=== PATIENT | female | born 1995 | race Caucasian/White ===

== ENCOUNTER 2022-10-09 07:10 | Day surgery (SDC) | payer MEDICAID ==
[2022-10-05 16:27] LABS: HCG,QUAL RESULT NEGATIVE (NEGATIVE)
[~2022-10-09] VITALS: Ht 154.9 cm; Wt 63.5 kg
[2022-10-09 06:57] LABS: HCG,QUAL RESULT NEGATIVE (NEGATIVE)
[2022-10-09] MEDS ORDERED: fentaNYL CITRATE 250 MCG/5 ML AMP ONE (09:10)
[2022-10-09] MEDS ORDERED: ROCURONIUM BROMIDE 10 MG/ML (ZEMURON) ONE (09:10)
[2022-10-09] MEDS ORDERED: SUGAMMADEX SODIUM 200 MG/2 ML VIAL IV ONE (09:10)
[2022-10-09] MEDS ORDERED: DEXAMETHASONE SOD PHOSPHATE 4 MG/ML VIAL ONE (09:10)
[2022-10-09] MEDS ORDERED: NS IRRIG SOLN 1000 ML IR ONE (09:10)
[2022-10-09] MEDS ORDERED: LIDOCAINE 2%, 20 ML MDV ONE (09:10)
[2022-10-09] MEDS ORDERED: DESFLURANE 15 MIN GAS INH ONE (09:10)
[2022-10-09] MEDS ORDERED: ONDANSETRON HCL 4 MG/2 ML VIAL ONE (09:10)
[2022-10-09] MEDS ORDERED: PROPOFOL 200MG/ 20ML VIAL (DIPRIVAN) IV ONE (09:10)
[2022-10-09] MEDS ORDERED: MIDAZOLAM HCL 5 MG/ML VIAL (VERSED) IV ONE (09:10)
[2022-10-09] MEDS ORDERED: BACITRACIN ZINC 15 GM TOPICAL OINTMENT TP ONE (09:10)
[2022-10-09] MEDS ORDERED: MEPERIDINE HCL/PF 25 MG/ML DISP.SYRIN IVP PRN (09:45)
[2022-10-09] MEDS ORDERED: HYDROmorphone 1 MG/ML INJ. CARTRIDGE IVP PRN ×2 (09:45)
[2022-10-09] MEDS ORDERED: MIDAZOLAM HCL 2 MG/2 ML VIAL (VERSED) IVP PRN (09:45)
[2022-10-09] MEDS ORDERED: METOCLOPRAMIDE HCL 10 MG/2 ML VIAL IVP PRN (09:45)
[2022-10-09] MEDS ORDERED: LR 1,000 ML IV SCH (09:45)
[2022-10-09] MEDS: HYDROmorphone 1 MG/ML INJ. CARTRIDGE ONE ×2 (10:37→10:42)
[2022-10-09] MEDS ORDERED: MIDAZOLAM HCL 2 MG/2 ML VIAL (VERSED) ONE (10:55)
[2022-10-09 11:25] VITALS: BP_SYST 121
== END 2022-10-09 12:45 | disposition home or self-care (01) ==
LOC: SDS 07:10 → SMU 07:11 → SDS 12:45
PROVIDERS: ATTEND Otolaryngology
DX: H65.03 Acute serous otitis media, bilateral (principal); N94.89 Other specified conditions associated with female genital organs and menstrual cycle; J35.2 Hypertrophy of adenoids; F32.A Depression, unspecified; F90.9 Attention-deficit hyperactivity disorder, unspecified type; K21.9 Gastro-esophageal reflux disease without esophagitis; F90.0 Attention-deficit hyperactivity disorder, predominantly inattentive type; H68.101 Unspecified obstruction of Eustachian tube, right ear; Z20.822 Contact with and (suspected) exposure to COVID-19; Z79.899 Other long term (current) drug therapy
CPT/HCPCS: 84703 ×2; 87081; 36415 ×2; 42831; 69436; 87426; U0003; J3490; J1100; J2001; J2250; J3465; J2405; J2704; J3010; J1170; L8699